=== PATIENT | male | born 1965 | race Caucasian/White ===

== ENCOUNTER 2020-10-30 11:12 | Outpatient (REF) | payer OTHER, SELFPAY | END 2020-10-30 11:13 | disposition home or self-care (01) | LOC: HO.LNP 11:12 | PROVIDERS: Visit Provider Hospitalist | DX: Z20.822 Contact with and (suspected) exposure to COVID-19 (principal); B34.9 Viral infection, unspecified | CPT/HCPCS: U0003; U0005 ==

== ENCOUNTER → 2020-11-23 09:00 | Outpatient (BNVA) | payer OTHER, SELFPAY | PROVIDERS: PCP Internal Medicine; Visit Provider Nurse Practitioner | DX: Z13.89 Encounter for screening for other disorder (principal) | CPT/HCPCS: Q3014 ==

== ENCOUNTER 2020-12-28 11:13 | Day surgery (SDC) | payer OTHER, SELFPAY ==
[2020-12-22 14:00] VITALS: BMI 28.4
--- NOTE | 2020-12-27 11:02 | P.CONAN_ITS ---
Documented by User: Johana Tripathi 12/27/20 11:03 HPI - Anesthesia Eval Consult details Narrative: 55yo M for Upper Endoscopy and Colonoscopy [facility] Active Problems Active Problems: All Active Problems (Updated 12/22/20 @ 13:57 by Breanna Garvin) Viral syndrome (Acute) Diarrhea (Acute) Constipation (Acute) Abdominal bloating (Acute) Colon cancer screening (Acute) Odynophagia (Acute) Polyarthralgia (Acute) Allergic rhinitis (Acute) Mild asthma (Acute) GERD (gastroesophageal reflux disease) (Acute) Past Medical History Medical History Allergic rhinitis GERD (gastroesophageal reflux disease) Mild asthma Peptic ulcer Polyarthralgia Family History Family History Mother Cirrhosis of liver Diabetes Lung cancer Heart disease HTN (hypertension) Father Emphysema lung Sister Parkinson disease Paternal Grandmother Dementia HTN (hypertension) Paternal Aunt Bone cancer Surgical History Surgical History History of dental surgery Hx of hand surgery Social History Social History Alcohol intake: current Alcohol intake frequency: holidays/special occasions only Alcohol type: wine Smoking Status: Never smoker Use of substances other than those prescribed or required for medical reasons: No Have you been hit, kicked, punched, or otherwise hurt by someone within the past year? If so, by whom?: No Advance Directives Information Provided: No Meds Allergies Allergy/AdvReac Type Severity Reaction Status Date / Time coconut Allergy Intermediate skin rash Verified 12/22/20 13:59 Seasonal Allergies Allergy Intermediate Itchy Eyes Verified 12/22/20 13:59 gabapentin Allergy Shakiness Verified 12/27/20 09:09 Home Medications Medication Instructions Recorded Confirmed Last Taken Type albuterol sulfate 90 mcg/actuation 2 puff PO QID PRN 08/22/20 12/22/20 Unknown History aerosol inhaler fluticasone propionate 110 110 mcg INHALATION BID 08/22/20 12/22/20 Unknown History mcg/actuation HFA aerosol inhaler ibuprofen 800 mg tablet 800 mg PO TID PRN 11/23/20 12/22/20 Unknown History multivitamin 1 tab PO DAILY 11/23/20 12/22/20 Unknown History Exam Exam Date and Time: December 27, 2020 1102 Height,Weight and Vital Signs: Height 5 ft 8 in Weight 84.822 kg Assessment and Plan Assessment Anesthesia Assessment: Chart Reviewed Documented by User: Elizabeth Ko 12/28/20 11:54 [facility] Past Medical History Medical History Allergic rhinitis GERD (gastroesophageal reflux disease) Mild asthma Peptic ulcer Polyarthralgia Family History Family History Mother Cirrhosis of liver Diabetes Lung cancer Heart disease HTN (hypertension) Father Emphysema lung Sister Parkinson disease Paternal Grandmother Dementia HTN (hypertension) Paternal Aunt Bone cancer Surgical History Surgical History History of dental surgery Hx of hand surgery Social History Social History Alcohol intake: current Alcohol intake frequency: holidays/special occasions only Alcohol type: wine Smoking Status: Never smoker Use of substances other than those prescribed or required for medical reasons: No Have you been hit, kicked, punched, or otherwise hurt by someone within the past year? If so, by whom?: No Advance Directives Information Provided: No Meds Allergies Allergy/AdvReac Type Severity Reaction Status Date / Time coconut Allergy Intermediate skin rash Verified 12/22/20 13:59 Seasonal Allergies Allergy Intermediate Itchy Eyes Verified 12/22/20 13:59 gabapentin Allergy Shakiness Verified 12/27/20 09:09 Home Medications Medication Instructions Recorded Confirmed Last Taken Type albuterol sulfate 90 mcg/actuation 2 puff PO QID PRN 08/22/20 12/22/20 Unknown History aerosol inhaler fluticasone propionate 110 110 mcg INHALATION BID 08/22/20 12/22/20 Unknown History mcg/actuation HFA aerosol inhaler ibuprofen 800 mg tablet 800 mg PO TID PRN 11/23/20 12/22/20 Unknown History multivitamin 1 tab PO DAILY 11/23/20 12/22/20 Unknown History Exam Airway Mallampati Class: III TM Dist: >3cm Neck ROM: Full Loose/Missing/Broken Teeth: Yes Heart: RRR Lungs: CTA Assessment and Plan Assessment Anesthesia Assessment: Anesthesia Plan Discussed and Chart Reviewed Final Anesthetic Review NPO: Yes ASA Class: II Final Preanesthetic Review: Meds/Allgs Chart Reviewed, Consent Obtained/Reviewed and Anes Risks/Benef Reviewed Patient Risk: Low Procedure Risk: Intermediate Anesthetic Plan Anesthetic Plan: MAC: Disposition: Standard PACU
[2020-12-28 11:24] VITALS: BP 129/79; PULSE 85; RESP 18; TEMP 36.3; O2SAT 97
[2020-12-28] MEDS: Lactated Ringers 1,000 ML 100 ML IVCONT (11:38)
--- NOTE | 2020-12-28 11:40 | P.OP_ITS ---
Operative Note Operative Note Date of Service: 12/28/20 Narrative: Pre-op diagnosis: Colon cancer screening, chronic constipation alternating with diarrhea, GERD, history of peptic ulcer disease Post-op diagnosis: other (GERD, gastritis, gastric polyp, diverticulosis, hemorrhoids, colon polyp) Procedure: FLEXIBLE TRANSORAL UPPER GASTROINTESTINAL ENDOSCOPY WITH BIOPSIES AND COLONOSCOPY TILL CECUM WITH BIOPSIES AND SNARE POLYPECTOMY UPPER ENDOSCOPY Consent: Indications for the procedure and potential complications of bleeding, perforation, reaction to medications and missed diagnosis were discussed with the patient and informed consent was obtained. Instrument: Olympus GIF H 190 mid size upper endoscope Monitoring: Vital signs and clinical assessment, continuous EKG monitoring, Pulse oximetry, Carbon Dioxide monitoring and blood pressure monitoring were done throughout the procedure. Procedure: The patient was placed in the left lateral decubitis position and pre-procedure medications were administered and a bite block was placed. The endoscope was inserted into the mouth and advanced under direct vision to the third part of duodenum. A careful inspection was made as the upper endoscope was withdrawn including a retroflexed examination of the proximal stomach; Findings and interventions are described below. Findings: Larynx: Normal Esophagus: GE junction at 40 cms. 1 cms tongue of suspected Ashford's.- biopsied. Stomach: Mild gastric erythema. Biopsies were obtained from the antrum and body of the stomach. A 2-3 mm benign appearing polyp in the gastric body - removed with a cold biopsy. Grade 2 flap valve on retroflexed examination of the cardia. Duodenum: Normal bulb and descending duodenum. Biopsies were obtained from 3rd part of the duodenum to check for celiac sprue. Intervention: Biopsies as noted above COLONOSCOPY PROCEDURE NOTE Consent: Indications for the procedure and potential complications of bleeding, perforation, reaction to medications and missed diagnosis were discussed with the patient and informed consent was obtained. Instrument: Olympus PCF H 190 L variable stiffness pediatric colonoscope Monitoring: Vital signs and clinical assessment, intermittent blood pressure monitoring, continuous EKG monitoring, Pulse oximetry and Carbon Dioxide monitoring were done throughout the procedure. Colon withdrawl time was 21 minutes. Procedure: The patient was placed in the left lateral decubitis position and pre-procedure medications were administered. After a digital rectal examination of the ano-rectum, the video colonoscope was inserted into the rectum and advanced through the colon to the cecum. The colonoscope was slowly withdrawn in a retrograde panoramic fashion and the colon mucosa was carefully examined including a retroflexed view of the rectum. Findings and interventions are described below. Procedure Difficulty: : LLQ pressure applied to intubate the transverse colon/cecum Findings: Terminal Ileum: Not evaluated Cecum: Normal Ascending Colon: 5 mm polyp versus fold in the proximal ascending colon which was biopsied. Transverse Colon: Normal Descending Colon: Moderate diverticulosis Sigmoid Colon: 7-8 mm sessile polyp removed with a cold snare. Severe dive rticulosis Rectum: Normal Ano-rectum: Moderate internal hemorrhoids Colon preparation: Good after some irrigation Impression and Post Procedure Diagnosis: Endoscopy Findings: ESOPHAGUS: GE junction at 40 cms. 1 cms tongue of suspected Ashford's.- biopsied. STOMACH: Gastritis and small gastric polyp DUODENUM: Normal - biopsied to check for celiac sprue Colonoscopy Findings: Two small polyps removed Moderate diverticulosis seen in the left colon Moderate hemorrhoids on retroflexed exam. Plan: Await pathology results Patient to schedule a follow up appointment in the GI Clinic with Khloe Ulloa NP. Repeat Colonoscopy interval based on path results - in 5 years if polyps are adenomatous and 10 years if polyps are hyperplastic. Above findings were reviewed with the patient and GERD, colon polyps and diverticulosis handouts were given in the discharge area Surgeon: Jackeline Devine MD Anesthesia: MAC (Shamika Goldstein, FROZEN MEAT CUTTER) Book Sorter: Yaz Warren Estimated blood loss (mL): 0 Pathology: other (A: SMALL BOWEL BX'S, R/O CELIAC B: GASTRIC ANTRUM C: GASTRIC BODY D: GASTRIC POLYP E: GE JUNCTION, R/O ASHFORD'S F: ASCENDING COLON POLYP G: SIGMOID P) Condition: stable Disposition: PACU
--- NOTE | 2020-12-28 11:40 | MHC.SHP ---
Pre-Procedural Eval Section A The patient is an INPATIENT: No The History & Physical has been completed within 30 days and I have reviewed it.: No Section B Chief Complaint: Screeing, GERD Details of Present Illness: Colon cancer screening, constipation alternating with diarrhea, abdominal pain and bloating, hx of PUD Relevant Family History (Specify if Yes): Yes Present Medications: see Short Stay Collaborative assessment Medical History: Significant History (Allergic rhinitis GERD (gastroesophageal reflux disease) Mild asthma Polyarthralgia) History of Previous Operations: Relevant previous surgery/procedure and date(s) (History of dental surgery Hx of hand surgery) Allergies: Allergies Allergy/AdvReac Type Severity Reaction Status Date / Time coconut Allergy Intermediate skin rash Verified 12/22/20 13:59 Seasonal Allergies Allergy Intermediate Itchy Eyes Verified 12/22/20 13:59 gabapentin Allergy Shakiness Verified 12/27/20 09:09 Review of Systems Sugical H&P ROS: Negative: Constitution, Cardiovascular and Respiratory and Yes, Specify: Gastrointestinal (Constipation alternating with diarrhea, abdominal pain) Exam Surgical H&P Exam: Normal: Heart, Normal: Lungs, Normal: Extremities and Normal: Abdomen Plan Diagnosis/Plan: Change (EGD and colonoscopy for colon cancer screening and evaluation above symptoms) I have reviewed the history and physical and performed a pertinent physical examination on my patient. No changes have occurred unless specified.
[2020-12-28 12:45] VITALS: BP 107/73; PULSE 83; RESP 20; TEMP 36.1; O2SAT 98
[2020-12-28 13:00] VITALS: BP 106/73; PULSE 78; RESP 18; O2SAT 98
== END 2020-12-28 14:46 | disposition home or self-care (01) ==
PROVIDERS: PCP Internal Medicine; Visit Provider Internal Medicine Gastroenterology
PROC: (CPT 45385; principal; 2020-12-28 11:30)
DX: Z12.11 Encounter for screening for malignant neoplasm of colon (principal); D12.5 Benign neoplasm of sigmoid colon; K63.5 Polyp of colon; K57.30 Diverticulosis of large intestine without perforation or abscess without bleeding; K64.8 Other hemorrhoids; K59.09 Other constipation; K21.9 Gastro-esophageal reflux disease without esophagitis; K29.50 Unspecified chronic gastritis without bleeding; K31.7 Polyp of stomach and duodenum; Z87.11 Personal history of peptic ulcer disease; J45.909 Unspecified asthma, uncomplicated; Z79.51 Long term (current) use of inhaled steroids; Z79.899 Other long term (current) drug therapy; Z88.8 Allergy status to other drugs, medicaments and biological substances
CPT/HCPCS: 45385; 45380; 43239; 88305; 88342

== ENCOUNTER → 2021-07-02 15:55 | Outpatient (BNVA) | payer OTHER, SELFPAY | PROVIDERS: PCP Internal Medicine; Visit Provider Nurse Practitioner | DX: K59.04 Chronic idiopathic constipation (principal); K21.9 Gastro-esophageal reflux disease without esophagitis; D12.6 Benign neoplasm of colon, unspecified | CPT/HCPCS: Q3014 ==

== ENCOUNTER → 2021-07-31 08:47 | Outpatient (BNVA) | payer OTHER, SELFPAY | PROVIDERS: PCP Nurse Practitioner Family; Visit Provider Nurse Practitioner | DX: Z13.89 Encounter for screening for other disorder (principal) | CPT/HCPCS: Q3014 ==

== ENCOUNTER → 2022-03-07 12:40 | Outpatient (BNVA) | payer OTHER, SELFPAY | PROVIDERS: PCP Internal Medicine; Referring Provider Internal Medicine; Visit Provider Nurse Practitioner | DX: K59.04 Chronic idiopathic constipation (principal); K21.9 Gastro-esophageal reflux disease without esophagitis | CPT/HCPCS: 99212 ==

== ENCOUNTER → 2022-09-24 08:41 | Outpatient (BNVA) | payer OTHER, SELFPAY | PROVIDERS: PCP Internal Medicine; Visit Provider Nurse Practitioner | DX: K21.9 Gastro-esophageal reflux disease without esophagitis (principal); K59.04 Chronic idiopathic constipation; R14.0 Abdominal distension (gaseous); Z91.018 Allergy to other foods; Z79.899 Other long term (current) drug therapy | CPT/HCPCS: 99212 ==

== ENCOUNTER 2022-11-12 14:30 | Outpatient (RCR) | payer OTHER, SELFPAY ==
--- NOTE | 2022-10-04 12:16 | MHC.OT.EP ---
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 Pt will benefit from OT to regain hand strength and dexterity for inc ease with daily activities. 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 Thank you once again for your referral.
--- NOTE | 2022-11-12 15:27 | MHC.OT.DC ---
[address] [phone] F: [phone] Occupational Therapy Discharge Note Provider: Lorenza Hartley Diagnosis: Pain in left hand Date of Surgery: Date of Evaluation: 10/04/22 Date of Discharge: 11/12/22 Treatments to Date: 3 Cancellations to Date: No Shows to Date: Discharge Status: Achieved Goals Improved Function Independent with HEP Discharge Summary: Left hand pain resolved Left trigger finger resolved Towel Sorter strength WNL Left hand function improved to WNL. Pt reports no difficulty with homemaking including using his beamer hand a few hours today Absences due to family illness He reports he is nervous with using a knife in his left dominant hand however reported confident after practicing in OT today Goals met Electronically Signed By: Justina Puckett OT CHT CLT Reviewed/agree with student documentation: N/A Therapist: Please Sign and return to therapist, thank you for your referral.
== END 2022-11-12 15:27 | disposition home or self-care (01) ==
LOC: HO.OT 14:30
PROVIDERS: PCP Internal Medicine; Visit Provider Internal Medicine
DX: M79.642 Pain in left hand (principal)
CPT/HCPCS: 97035; 97110; 97166; 97530

== ENCOUNTER 2023-06-18 08:38 | Outpatient (AMB) | payer OTHER, SELFPAY ==
[2023-06-18 08:40] VITALS: BP 132/77; PULSE 69; BMI 26.5
--- NOTE | 2023-06-18 08:40 | A.OFFVIS_ITS ---
Intake Vital Signs 06/18/23 08:40 Height 5 ft 8 in Weight 174 lb 2.643 oz BMI 26.5 BP 132/77 Blood Pressure Location Rt brachial Position Sitting Pulse 69 Intake Visit Reasons: Abdominal pain PT N/S last 3 appt Intake Note: Patient presents today in office visits in follow up of abdominal pain. CC: Patient c/o diarrhea for the last 4-5 days, nausea, and abdominal pain. He reports he is worried about his brother in law because he is in the hospital and stress might be affecting his stomach. Access Liaison Required: No Accompanied by: Self / Same As Patient Allergies coconut Allergy (Intermediate, Verified 06/18/23 08:54) skin rash Seasonal Allergies Allergy (Intermediate, Verified 06/18/23 08:54) Itchy Eyes gabapentin Allergy (Verified 06/18/23 08:54) Shakiness cut glass Allergy (Mild, Uncoded 09/05/22 08:50) Unknown ahuja Allergy (Mild, Uncoded 09/05/22 08:50) unknown HPI Abdominal pain PT N/S last 3 appt HPI Details Assessment & Plan (1) Chronic idiopathic constipation: ?Code(s): K59.04 - Chronic idiopathic constipation ?Plan: He received the Linzess and at the 145mcg dose he is moving his bowels well, and he does not feel that he needs a dose adjustment. He will still have bloating with some foods, sampson dairy, and he feels that some foods give me red splotches on my hands. He has had prior testing and he knows he is allergic to coconut and nuts, peanut [id number] and shrimp. He is doing well on his protonix and he has senna to take prn. ROV 3 month. 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 Qualified Code(s):?K21.9 - Gastro-esophageal reflux disease without esophagitis (4) Abdominal bloating: ?Comment: This was largely relieved once we regulate his constipation on Linzess 145 micro g ?Code(s): R14.0 - Abdominal distension (gaseous) TODAYS VISIT He says his stomach is bothering me a lot. He is having severe bloating after eating. This has been a problem for about 3 weeks. He also been having a lot of diarrhea. He says I feel like there is a blockage. He has tried imodium and suppositories. It is worse with eating rice. He has continued to take the LInzess 290 daily and the senna. I think since he has had 7 days of diarrhea we should go back to the lower 145mcg dose and stop the senna. It sounds like he is having gas trapping. He says he is taking simethicone tid. He is also c/o pain with urination. He had some fevers/chills about a week ago, tested for COVID and it was negative. ROV 3 weeks. 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 He says he has been under a lot of stress. [facility] Medical History Hearing loss Peptic ulcer Diarrhea Polyarthralgia Allergic rhinitis Mild asthma GERD (gastroesophageal reflux disease) Surgical History History of esophagogastroduodenoscopy (EGD) Hx of colonoscopy History of dental surgery Hx of hand surgery Family History Mother Cirrhosis of liver Diabetes Lung cancer Heart disease HTN (hypertension) Father Emphysema lung Sister Parkinson disease Substance use disorder Paternal Grandmother Dementia HTN (hypertension) Paternal Aunt Bone cancer Social History Housing: House Alcohol intake: current Alcohol intake frequency: holidays/special occasions only Alcohol type: wine Patient Tobacco Use Status: Never used Tobacco e-Cigarette/Vaping Use: Never Used Second Hand Smoke Exposure: No service: No Current occupational status: disabled Cognitive needs: No Hearing needs: No Vision needs: Yes Review of Systems Const Denies fatigue, Reports fever(s), Denies night sweats, Denies poor appetite and Denies weight loss Eyes Details: glasses Reports requires corrective lenses ENT Reports Normal hearing present, Denies dental pain, Denies dysphagia, Denies hearing loss, Denies mouth pain, Denies odynophagia, Denies throat swelling, Denies tongue swelling and Reports other (Dentition adequate) Card Reports no additional complaints Resp Reports no additional complaints GI Reports abdominal pain, Denies melena, Reports bloating, Denies hematochezia, Reports constipation, Denies GI cramping, Denies dysphagia, Denies excessive flatus, Denies early satiety, Reports heartburn, Reports diarrhea, Reports nausea, Denies odynophagia, Denies vomiting and Denies hematemesis Reports hematuria, Reports difficulty urinating and Reports dysuria Skin/Breast Denies pruritus, Denies lesions, Denies rash and Denies jaundice Neuro Reports Normal hearing present and Denies Abnormal speech present Psych Reports anxiety Endo Denies fatigue Aller/Immun Denies throat swelling and Denies tongue swelling Physical Exam Vital Signs: Last Vital Signs Pulse 69 06/18/23 08:40 BP 132/77 06/18/23 08:40 BMI result Body Mass Index 26.5 Const General: cooperative, no acute distress, well developed and well groomed Nutritional Appearance: average body habitus and well nourished Orientation/consciousness: oriented to person, oriented to place and oriented to time Limitations: No language barrier and other limitations HEENT Head: Yes normocephalic and Yes atraumatic Eyes General: appearance normal, both eyes and all related structures Pupils: Equal, round and reactive pupils present Neck Neck: Yes normal visual inspection and Yes no lymphadenopathy Thyroid: Thyroid normal Resp Effort & Inspection: normal respiratory effort and able to speak in complete sentences Auscultation: clear to auscultation bilaterally Cardio Rate: regular rate Rhythm: regular rhythm Heart sounds: Normal, physiologic split S2 sound present Peripheral pulses: radial pulses present and posterior tibial pulses present GI Inspection: No distended and No Abdominal panniculus present Palpation (GI): Soft to palpation, nontender, no guarding, not rigid and No hepatosplenomegaly present Percussion: Yes normal to percussion Auscultation: normal bowel sounds Rectal Exam - Male: Yes deferred Skin General skin exam: no rashes or lesions noted, turgor normal, skin not dry, no jaundice, No spider nevi and no striae Rashes: no rashes Nails: normal Neuro General: oriented to person, oriented to place and oriented to time Cranial nerves: Yes Equal, round and reactive pupils present and Yes Normal hearing present Speech: No Abnormal speech present Extrem General: Yes normal to inspection, No clubbing, No cyanosis and No edema Psych Appearance: grossly normal and well kempt Mental Status: mental status grossly normal Speech and movement: Normal speech and movement present Affect: normal affect Attitude: cooperative Thought process: Normal thought process present and not confabulating Thought content: Normal thought content present Insight: Limited insight present (Psych) Judgement: Limited judgement present (Psych) Assessment & Plan Assessment & Plan (1) Acute diarrhea: Code(s): R19.7 - Diarrhea, unspecified Plan: He says his stomach is bothering me a lot. He is having severe bloating after eating. This has been a problem for about 3 weeks. He also been having a lot of diarrhea. He says I feel like there is a blockage. He has tried imodium and june ppositories. It is worse with eating rice. He has continued to take the LInzess 290 daily and the senna. I think since he has had 7 days of diarrhea we should go back to the lower 145mcg dose and stop the senna. It sounds like he is having gas trapping. He says he is taking simethicone tid. He is also c/o pain with urination. He had some fevers/chills about a week ago, tested for COVID and it was negative. ROV 3 weeks. 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 He says he has been under a lot of stress. (2) Chronic idiopathic constipation: Code(s): K59.04 - Chronic idiopathic constipation (3) Abdominal bloating: Comment: This was largely relieved once we regulate his constipation on Linzess 145 micro g Code(s): R14.0 - Abdominal distension (gaseous) (4) GERD (gastroesophageal reflux disease): Code(s): K21.9 - Gastro-esophageal reflux disease without esophagitis Qualifiers: Esophagitis presence: esophagitis presence not specified Qualified Code(s): K21.9 - Gastro-esophageal reflux disease without esophagitis (5) Multiple food allergies: Comment: Nuts, peanut butter, shrimp, coconut-had food allergy testing at a different practice and he will break out in red splotches when he eats these and 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 Code(s): Z91.018 - Allergy to other foods Orders: Orders Calprotectin, Fecal Today R19.7 - Diarrhea, unspecified UA CC w/rflx Micro + Cult Today R19.7 - Diarrhea, unspecified GI Panel Today R19.7 - Diarrhea, unspecified CDiff Gene PCR Today R19.7 - Diarrhea, unspecified Medications: On Hold sennosides (Senna Laxative) Hold Comment: Doctor's Order 17.2 mg (2 x 8.6 mg) PO BEDTIME 90 days PRN 90 tabs 1RF constipation linaclotide (Linzess) Hold Comment: Doctor's Order 290 mcg PO QAM 30 days 30 caps 3RF Resumed linaclotide (Linzess) 145 mcg PO QAM 30 caps 6RF K59.04 - Chronic idiopathic constipation linaclotide (Linzess) 145 mcg PO QAM 30 caps 6RF K59.04 - Chronic idiopathic constipation Coding Level of Care Code Est Pt Level 3 (45637) Diagnoses Acute diarrhea R19.7 Chronic idiopathic constipation K59.04 Abdominal bloating R14.0 Gastroesophageal reflux disease, unspecified whether esophagitis present K21.9 Esophagitis presence: esophagitis presence not specified Multiple food allergies Z91.018
== END 2023-06-18 09:26 | disposition home or self-care (01) ==
PROVIDERS: PCP Internal Medicine; Visit Provider Nurse Practitioner
DX: R19.7 Diarrhea, unspecified (principal); K59.04 Chronic idiopathic constipation; R14.0 Abdominal distension (gaseous); K21.9 Gastro-esophageal reflux disease without esophagitis; Z91.018 Allergy to other foods
CPT/HCPCS: 99213

== ENCOUNTER 2023-06-18 08:38 | Outpatient (REF) | payer OTHER, SELFPAY | END 2023-06-18 08:39 | disposition home or self-care (01) | LOC: HO.LAB 08:38 | PROVIDERS: PCP Internal Medicine; Visit Provider Nurse Practitioner | DX: R19.7 Diarrhea, unspecified (principal); K59.04 Chronic idiopathic constipation; R14.0 Abdominal distension (gaseous); K21.9 Gastro-esophageal reflux disease without esophagitis; Z91.018 Allergy to other foods | CPT/HCPCS: 74019; 99212 ==

== ENCOUNTER 2023-06-19 10:31 | Outpatient (REF) | payer OTHER, SELFPAY ==
[2023-06-19 11:16] LABS: Appearance Urine Clear; Color Urine Yellow; Glucose Urine UA Negative (Negative); Leukocyte Esterase Urine Negative (Negative); Nitrite Urine Negative (Negative); PH 5.5 (5.0-9.0); Specific Gravity - Urine 1.015 (1.005-1.025); Urine Blood Negative (Negative); Urine Ketones Negative (Negative); Urine Protein Negative (Neg-Trace)
[2023-06-19 12:28] LABS: Adenovirus F 40/41 Not Detected (Not Detect.); Astrovirus Not Detected (Not Detect.); Campylobacter Not Detected (Not Detect.); Cryptosporidium Not Detected (Not Detect.); Cyclospora cayetanensis Not Detected (Not Detect.); E. coli EAEC Not Detected (Not Detect.); E. coli EPEC Not Detected (Not Detect.); E. coli ETEC Not Detected (Not Detect.); E. coli STEC Not Detected (Not Detect.); Entamoeba histolytica Not Detected (Not Detect.); Giardia lamblia Not Detected (Not Detect.); Norovirus GI/GII Not Detected (Not Detect.); Plesiomonas shigelloides Not Detected (Not Detect.); Rotavirus A Not Detected (Not Detect.); Salmonella Not Detected (Not Detect.); Sapovirus Not Detected (Not Detect.); Shigella sp./EIEC Not Detected (Not Detect.); Vibrio Not Detected (Not Detect.); Vibrio Cholerae Not Detected (Not Detect.); Yersinia enterocolitica Not Detected (Not Detect.)
[2023-06-27 02:04] LABS: Calprotectin, Fecal 48 mcg/g
== END 2023-06-19 10:32 | disposition home or self-care (01) ==
LOC: HO.LNP 10:31
PROVIDERS: Visit Provider Nurse Practitioner
DX: R19.7 Diarrhea, unspecified (principal)
CPT/HCPCS: 81003; 83993; 87493; 87507

== ENCOUNTER 2023-07-09 11:50 | Outpatient (AMB) | payer OTHER, SELFPAY ==
[2023-07-09 12:03] VITALS: BP 123/77; PULSE 66; O2SAT 98; BMI 26.3
--- NOTE | 2023-07-09 12:03 | MHC.OFFVIS ---
Intake Vital Signs 07/09/23 12:03 Height 5 ft 8 in Weight 173 lb 4.533 oz BMI 26.3 BP 123/77 Blood Pressure Location Lt brachial Position Sitting Pulse 66 Pulse Source Pulse Oximeter Pulse Oximetry (%) 98 Oxygen Delivery Method Room Air Intake Visit Reasons: 3 week follow up Intake Note: Pt presents to the office today for a 3 week follow up for abdominal bloating. Pt states his bloating has improved greatly since he was seen last. Pt denies any N/V/D. Allergies coconut Allergy (Intermediate, Verified 07/09/23 12:06) skin rash Seasonal Allergies Allergy (Intermediate, Verified 07/09/23 12:06) Itchy Eyes gabapentin Allergy (Verified 07/09/23 12:06) Shakiness cut glass Allergy (Mild, Uncoded 07/09/23 12:06) Unknown ahuja Allergy (Mild, Uncoded 07/09/23 12:06) unknown HPI 3 week follow up HPI Details Assessment & Plan (1) Acute diarrhea: Code(s): R19.7 - Diarrhea, unspecified Plan: He says his stomach is bothering me a lot. He is having severe bloating after eating. This has been a problem for about 3 weeks. He also been having a lot of diarrhea. He says I feel like there is a blockage. He has tried imodium and suppositories. It is worse with eating rice. He has continued to take the LInzess 290 daily and the senna. I think since he has had 7 days of diarrhea we should go back to the lower 145mcg dose and stop the senna. It sounds like he is having gas trapping. He says he is taking simethicone tid. He is also c/o pain with urination. He had some fevers/chills about a week ago, tested for COVID and it was negative. ROV 3 weeks. 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 He says he has been under a lot of stress. (2) Chronic idiopathic constipation: Code(s): K59.04 - Chronic idiopathic constipation (3) Abdominal bloating: Comment: This was largely relieved once we regulate his constipation on Linzess 145 micro g Code(s): R14.0 - Abdominal distension (gaseous) (4) GERD (gastroesophageal reflux disease): Code(s): K21.9 - Gastro-esophageal reflux disease without esophagitis Qualifiers: Esophagitis presence: esophagitis presence not specified Qualified Code(s): K21.9 - Gastro-esophageal reflux disease without esophagitis (5) Multiple food allergies: Comment: Nuts, peanut butter, shrimp, coconut-had food allergy testing at a different practice and he will break out in red splotches when he eats these and 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 Code(s): Z91.018 - Allergy to other foods Orders: Orders Calprotectin, Feca l Today R19.7 - Diarrhea, unspecified UA CC w/rflx Micro + Cult Today R19.7 - Diarrhea, unspecified GI Panel Today R19.7 - Diarrhea, unspecified CDiff Gene PCR Today R19.7 - Diarrhea, unspecified Medications: On Hold sennosides (Senna Laxative) Hold Comment: Doctor's Order 17.2 mg (2 x 8.6 m g) PO BEDTIME 90 d ays PRN 90 tabs 1R F constipation linaclotide (Linze ss) Hold Commen t: Doctor's Order 290 mcg PO QAM 30 days 30 caps 3RF Resumed linaclotide (Linze ss) 145 mcg PO QAM 30 caps 6RF K59.04 - Chronic i diopathic constipa tion linaclotide (Linze ss) 145 mcg PO QAM 30 caps 6RF K59.04 - Chronic i diopathic constipa tion LABS: Laboratory Tests 06/19/23 06:30 Stool Calprotectin 48 C. difficile Tox B Gene NEGATIVE ENTERED: 3-[address]: ORDERED: GI Oleary el Test Result Flag Refere nce Si te Campylobacter No t Detected Not Det ect. P. shigelloides Not Detected Not Detec t. S almonella Not De tected Not Detect. Vib wilian Not Dete cted Not Detect. Vibri o Cholerae Not Detect ed Not Detect. Y. ente rocolit. Not Detected Not Detect. E. coli E AEC Not Detected N ot Detect. E. coli EPE C Not Detected Not Detect. E. coli ETEC Not Detected Not D etect. E. coli STEC No t Detected Not Det ect. E. coli O157 Not a pplicable Not Detec t. E. coli contai gia the O157 anti gen are a subset o f Shiga-lik e toxin-producing E. coli (STEC). Shigella/EIEC Not D etected Not Detect . Cr yptosporidium Not Det ected Not Detect. Cycl ospora Not Detec sincere Not Detect. E. his [place] Not Detecte d Not Detect. Giardia lamblia Not Detected Not Detect. Adenovirus Not Detected No t Detect. Astrovirus Not Detected Not Detect. Norovirus N ot Detected Not De tect. Rotavirus A Not Detected Not Dete ct. Sapovirus Not D etected Not Detect . QUERIES: Collect ion Date: 06/19/23 Colle ction Time: 0630 Breanne rce: Urine, Clean Catch Test Result Flag Refere nce Si te Ur Color Yellow Ur Appear C lear P H 5. 5 5.0-9.0 Ur Glu Negati ve Negative mg/d L Urine Blood Negative Negative Spec Gr avity Ur 1.015 1.005-1.025 Urine Pro tein Negative N eg-Trace mg/dL Urine [place] es Negative Neg ative mg/dL Ur Nitrite Negative Negat danny Ur Joe Esterase Negative Negativ e TODAYS VISIT His diarrhea has ceased. He he is uncertain rely but it might be that he is dealing better with his stress. For now we have stopped his Linzess since constipation does not seem to be a driving process at this time. Again he has multiple food allergies so it is uncertain is something he ate may have triggered this last exacerbation. We review all the labs and does not appear to be acute infection there does not seem to be any concern for anything severe such as inflammatory bowel disease. His only complaint is that he is having swelling and itching at the meatus of his penis. He denies any risky sexual contacts. I did advise him that this may be balanitis and I will give him an anti fungal but if it does not resolve he should present to an urgent care for STD testing. I say this because these things are much easier to treat then to the leave untreated with serious life-threatening sequela. Return office visit in 8 weeks to evaluate his response to presume balanitis and see how he is doing with his bowels. [facility] Medical History Hearing loss Peptic ulcer Diarrhea Polyarthralgia Allergic rhinitis Mild asthma GERD (gastroesophageal reflux disease) Surgical History History of esophagogastroduodenoscopy (EGD) Hx of colonoscopy History of dental surgery Hx of hand surgery Family History Mother Cirrhosis of liver Diabetes Lung cancer Heart disease HTN (hypertension) Father Emphysema lung Sister Parkinson disease Substance use disorder Paternal Grandmother Dementia HTN (hypertension) Paternal Aunt Bone cancer Social History Housing: House Alcohol intake: current Alcohol intake frequency: holidays/special occasions only Alcohol type: wine Patient Tobacco Use Status: Never used Tobacco e-Cigarette/Vaping Use: Never Used Second Hand Smoke Exposure: No service: No Current occupational status: disabled Cognitive needs: No Hearing needs: No Vision needs: Yes Review of Systems Const Denies fatigue, Denies fever(s), Denies night sweats, Denies poor appetite and Denies weight loss Eyes Reports requires corrective lenses ENT Reports Normal hearing present, Denies dental pain, Denies dysphagia, Denies hearing loss, Denies mouth pain, Denies odynophagia, Denies throat swelling, Denies tongue swelling and Reports other (Dentition adequate) GI Denies abdominal pain, Denies melena, Denies bloating, Denies hematochezia, Denies constipation, Denies GI cramping, Denies dysphagia, Denies excessive flatus, Denies early satiety, Denies heartburn, Denies diarrhea, Denies nausea, Denies odynophagia, Denies vomiting and Denies hematemesis Skin/Breast Denies pruritus, Denies lesions, Denies rash and Denies jaundice Neuro Reports Normal hearing present and Denies Abnormal speech present Endo Denies fatigue Aller/Immun Denies throat swelling and Denies tongue swelling Physical Exam Vital Signs: Last Vital Signs Pulse 66 07/09/23 12:03 BP 123/77 07/09/23 12:03 Pulse Ox 98 07/09/23 12:03 Oxygen Delivery Method Room Air 07/09/23 12:03 BMI result Body Mass Index 26.3 Const General: cooperative, no acute distress, well developed and well groomed Nutritional Appearance: well nourished, obese and overweight Orientation/consciousness: oriented to person, oriented to place and oriented to time Limitations: No language barrier, ambulation with cane, ambulation with walker and wheelchair HEENT Head: Yes normocephalic and Yes atraumatic Eyes General: appearance normal, both eyes and all related structures Pupils: Equal, round and reactive pupils present Neck Neck: Yes normal visual inspection and Yes no lymphadenopathy Thyroid: Thyroid normal Resp Effort & Inspection: normal respiratory effort and able to speak in complete sentences Auscultation: clear to auscultation bilaterally Cardio Rate: regular rate Rhythm: regular rhythm Heart sounds: Normal, physiologic split S2 sound present Peripheral pulses: radial pulses present and posterior tibial pulses present GI Inspection: No distended and No Abdominal panniculus present Palpation (GI): Soft to palpation, nontender, no guarding, not rigid, No hepatosplenomegaly present and Hepatosplenomegaly present Percussion: Yes normal to percussion Auscultation: normal bowel sounds Rectal Exam - Male: Yes deferred Skin General skin exam: no rashes or lesions noted, turgor normal, skin not dry, no jaundice, No spider nevi and no striae Rashes: no rashes Nails: normal Neuro General: oriented to person, oriented to place and oriented to time Cranial nerves: Yes Equal, round and reactive pupils present and Yes Normal hearing present Speech: No Abnormal speech present Extrem General: Yes normal to inspection, No clubbing, No cyanosis and No edema Psych Thought process: Normal thought process present and not confabulating Thought content: Normal thought content present Insight: Good insight present (Psych) Judgement: Good judgement present (Psych) Assessment & Plan Assessment & Plan (1) Acute diarrhea: Code(s): R19.7 - Diarrhea, unspecified Plan: His diarrhea has ceased. He he is uncertain rely but it might be that he is dealing better with his stress. For now we have stopped his Linzess since constipation does not seem to be a driving process at this time. Again he has multiple food allergies so it is uncertain is something he ate may have triggered this last exacerbation. We review all the labs and does not appear to be acute infection there does not seem to be any concern for anything severe such as inflammatory bowel disease. His only complaint is that he is having swelling and itching at the meatus of his penis. He denies any risky sexual contacts. I did advise him that this may be balanitis and I will give him an anti fungal but if it does not resolve he should present to an urgent care for STD testing. I say this because these things are much easier to treat then to the leave untreated with serious life-threatening sequela. Return office visit in 8 weeks to evaluate his response to presume balanitis and see how he is doing with his bowels. 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 He he is uncertain rely but it might be that he is dealing better with his stress. For now we have stopped his Linzess since constipation does not seem to be a driving process at this time. Again he has multiple food allergies so it is uncertain is something he ate may have triggered this last exacerbation. We review all the labs and does not appear to be acute infection there does not seem to be any concern for anything severe such as inflammatory bowel disease. His only complaint is that he is having swelling and itching at the meatus of his penis. He denies any risky sexual contacts. I did advise him that this may be balanitis and I will give him an anti fungal but if it does not resolve he should present to an urgent care for STD testing. I say this because these things are much easier to treat then to the leave untreated with serious life-threatening sequela. Return office visit in 8 weeks to evaluate his response to presume balanitis and see how he is doing with his bowels. Medications: New nystatin 1 appl topical TID 30 grams 3RF N48.1 - Balanitis [place] Discontinued linaclotide Discontinued Reason: Doctor's Order 290 mcg PO QAM 30 days 30 caps 3RF Resumed sennosides (Senna Laxative) 17.2 mg (2 x 8.6 mg) PO BEDTIME 90 days PRN 90 tabs 1RF constipation Lorenza Hartley MD Coding Level of Care Code Est Pt Level 3 (91477) Diagnoses Acute diarrhea R19.7 Balanitis N48.1 Multiple food allergies Z91.018 Chronic idiopathic constipation K59.04 Abdominal bloating R14.0 Gastroesophageal reflux disease, unspecified whether esophagitis present K21.9 Esophagitis presence: esophagitis presence not specified
== END 2023-07-09 13:29 | disposition home or self-care (01) ==
PROVIDERS: PCP Internal Medicine; Visit Provider Nurse Practitioner
DX: R19.7 Diarrhea, unspecified (principal); N48.1 Balanitis; Z91.018 Allergy to other foods; K59.04 Chronic idiopathic constipation; R14.0 Abdominal distension (gaseous); K21.9 Gastro-esophageal reflux disease without esophagitis
CPT/HCPCS: 99213

== ENCOUNTER → 2023-07-09 11:50 | Outpatient (BNVA) | payer OTHER, SELFPAY | PROVIDERS: PCP Internal Medicine; Visit Provider Nurse Practitioner | DX: R19.7 Diarrhea, unspecified (principal); K59.04 Chronic idiopathic constipation; R14.0 Abdominal distension (gaseous); K21.9 Gastro-esophageal reflux disease without esophagitis; N48.1 Balanitis; Z91.018 Allergy to other foods | CPT/HCPCS: 99212 ==

== ENCOUNTER 2023-09-10 08:29 | Outpatient (AMB) | payer OTHER, SELFPAY ==
[2023-09-10 08:32] VITALS: BP 128/80; BMI 25.4
--- NOTE | 2023-09-10 08:32 | MHC.PC.OV ---
Vital Signs 09/10/23 08:32 Height 5 ft 8 in Weight 167 lb BMI 25.4 BP 128/80 Blood Pressure Location Lt brachial Position Sitting Intake Visit Reasons: PE Intake Note: Patient here for a physical exam Pot Room Tapper Required: No Accompanied by: Self / Same As Patient Allergies coconut Allergy (Intermediate, Verified 09/10/23 08:38) skin rash Seasonal Allergies Allergy (Intermediate, Verified 09/10/23 08:38) Itchy Eyes gabapentin Allergy (Verified 09/10/23 08:38) Shakiness cut glass Allergy (Mild, Uncoded 09/10/23 08:38) Unknown ahuja Allergy (Mild, Uncoded 09/10/23 08:38) unknown Medication List - Last Reconciled 09/10/23 by Lorenza Hartley MD albuterol sulfate 90 mcg/actuation 2 puffs PO QID PRN diphenhydramine HCl (Benadryl Allergy) 25 mg PO BEDTIME 10 days fluticasone propionate 110 mcg/actuation (Flovent HFA) 1 puff PO BID 30 days ibuprofen 800 mg PO TID PRN linaclotide (Linzess) 145 mcg PO QAM multivitamin 1 tab PO DAILY nystatin 1 appl topical TID pantoprazole 40 mg PO BID 90 days sennosides (Senna Laxative) 17.2 mg (2 x 8.6 mg) PO BEDTIME PRN 90 days simethicone (Anti-Gas Ultra Strength) 180 mg PO TID PRN triamcinolone acetonide 0.1% 1 appl topical DAILY 15 days Tobacco use date assessed: 09/10/23 Dental Screening Dental Screen Date: 09/10/23 Did you have a dental visit in the last 12 months?: Yes Did you have a dental problem in the last 6 months where you did not have access to dental care?: No Was dental information given to patient?: Patient has dentist HPI HPI Comments History of Present Illness Details This is a 58-year-old male that comes for his physical exam. Last colonoscopy was 2020 showing tubular adenoma and next colonoscopy should be 2025. No chest pain or shortness of breath. [facility] Medical History Hearing loss Peptic ulcer Diarrhea Polyarthralgia Allergic rhinitis Mild asthma GERD (gastroesophageal reflux disease) Surgical History History of esophagogastroduodenoscopy (EGD) Hx of colonoscopy History of dental surgery Hx of hand surgery Family History Mother Cirrhosis of liver Diabetes Lung cancer Heart disease HTN (hypertension) Father Emphysema lung Sister Parkinson disease Substance use disorder Paternal Grandmother Dementia HTN (hypertension) Paternal Aunt Bone cancer Social History Housing: House Alcohol intake: current Alcohol intake frequency: holidays/special occasions only Alcohol type: wine Patient Tobacco Use Status: Never used Tobacco e-Cigarette/Vaping Use: Never Used Second Hand Smoke Exposure: No service: No Current occupational status: disabled Cognitive needs: No Hearing needs: No Vision needs: Yes Questionnaire PHQ-9 Over the last 2 weeks, how often have you been bothered by any of the following problems? 1. Little interest or pleasure in doing things: not at all 2. Feeling down, depressed, or hopeless: not at all 3. Trouble falling or staying asleep, or sleeping too much: not at all 4. Feeling tired or having little energy: not at all 5. Poor appetite or overeating: not at all 6. Feeling bad about yourself - or that you are a failure or have let yourself or your family down: not at all 7. Trouble concentrating on things, such as reading the newspaper or watching television: not at all 8. Moving or speaking so slowly that other people could have noticed. Or the opposite - being so fidgety or restless that you have been moving around a lot more than usual: not at all 9. Thoughts that you would be better off or of hurting yourself in some way: not at all Total score: 0 Depression Screening Interpretation: Negative Depression Screening Done: Yes 33792 - PHQ-9 Billing: Yes Source: Developed by Drs. Ankit Adler, Courtney Alejo, Misha Liu and colleagues, with an educational ketty from [employer]. Thrive Questionnaire Date Thrive assessed: 09/10/23 I am a: Patient What is your living situation today?: I have a steady place to live Within the past 12 months, did the food you bought not last and you didn't have the money to get more?: Never true Within the past 12 months, did you worry whether your food would run out before you got money to buy more?: Never true Do you have trouble paying for medicines?: No Do you have trouble getting transportation to medical appointments?: No Do you have trouble paying your heating and electricity bill?: No Do you have trouble taking care of your child, family member or friend?: No Do you have trouble with day-to-day activities such as bathing, preparing meals, shopping, managing finances, etc.?: No Are you currently unemployed and looking for a job?: No Are you interested in more education?: No Please select the resources that you would like help with: None Currently or been in a relationship where the following occur: no concerns reported AUDIT C Alcohol Use Questionnaire (AUDIT-C) 1. How often do you have a drink containing alcohol?: Monthly or less 2. How many drinks containing alcohol do you have on a typical day when you are drinking?: 1 or 2 3. How often do you have six or more drinks on one occasion?: Never Total Score: 1 Score Reviewed/Action Taken: No DM-7 AMB Questionnaire DM-7 Date DM - 7 assessed: 09/10/23 Feeling nervous, anxious, or on edge: 1 = Several days Not being able to stop or control worryin = Not at all Worrying too much about different things: 1 = Several days Trouble relaxin = Not at all Being so restless that it is hard to sit still: 0 = Not at all Becoming easily annoyed or irritable: 1 = Several days Feeling afraid as if something awful might happen: 0 = Not at all Total DM-7 score (0-4 normal; 5-9 mild; 10-14 moderate; 15-21 severe): 3 Source: Developed by Drs. Ankit Adler, Courtney Alejo, Misha Liu and colleagues, with an educational ketty from [employer]. DM-7 Assessment Billing DM-7 Assessment Tool: DM-7 Assessment 11278 Review of Systems Const All systems reviewed & are unremarkable except as noted in HPI and below Eyes Reports no additional complaints, Denies change in vision and Denies other visual disturbances Card Denies chest pain at rest, Denies chest pain with activity, Denies edema, Denies irregular heart rhythm, Denies claudication, Denies dyspnea, Denies dyspnea on exertion, Denies orthopnea, Denies paroxysmal nocturnal dyspnea and Denies slow heart rate Resp Denies cough, Denies dyspnea and Denies dyspnea on exertion GI Denies abdominal pain, Denies change in bowel habits, Denies excessive flatus, Denies nausea and Denies vomiting Denies urinary hesitancy, Denies urinary incontinence and Denies urinary urgency Musc Denies abnormal gait, Denies atrophy, Denies deformity and Denies limited range of motion Skin/Breast Denies bleeding lesions, Denies changing lesions and Denies rash Neuro Denies abnormal gait, Denies behavioral changes, Denies confusion and Denies lack of coordination Psych Denies behavioral changes and Denies confusion Physical exam (Primary Care) Vital Signs: Last Vital Signs BP 128/80 09/10/23 08:32 BMI result Body Mass Index 25.4 Tobacco/Smoking Status: Tobacco use Status Tobacco use date assessed 09/10/23 09/10/23 08:37 Patient Tobacco Use Status Never used Tobacco 09/10/23 08:37 e-Cigarette/Vaping Use Never Used 09/10/23 08:37 PHQ-9: PHQ-9 Score PHQ-9: Total score 0 09/10/23 08:44 Depression Screening Interpretation: Negative Thrive Assessment: Date of Thrive Assessment Date Thrive assessed 09/10/23 09/10/23 08:37 Currently or been in a relationship where the following occur: no concerns reported Const General: No confusion Orientation/consciousness: patient oriented x3 and No confusion [facility] Head: Yes normal to inspection, Yes normocephalic and Yes atraumatic Ears: external ears normal Eyes General: appearance normal, both eyes and all related structures Eyelids: Yes eyelids normal Conjunctivae: conjunctivae normal Neck Neck: Yes normal visual inspection and Yes supple Resp Effort & Inspection: normal respiratory effort Auscultation: clear to auscultation bilaterally Cardio Jugular venous distension: no JVD Rate: regular rate Rhythm: regular rhythm Heart sounds: S1 normal heart sound present and S2 normal heart sound present GI Inspection: Yes normal to inspection Palpation (GI): Soft to palpation and nontender Auscultation: normal bowel sounds Skin General skin exam: no rashes or lesions noted Neuro General: patient oriented x3, no focal motor deficits and No confusion Extrem General: Yes full ROM Psych Appearance: grossly normal Office Procedures Flu Questionnaire Does the patient have a severe egg allergy?: No Immunizations flu vacc [id number] 6mos up(PF) 60 mcg(15 mcgx4)/0.5 mL IM syringe Performing Provider: Lorenza Hartley MD [facility] Documented (not given) by: PAM Hummel on 09/10/23 08:38 Reason Not Given: Received Previously Assessment and Plan Assessment & Plan (1) Physical exam: Code(s): Z00.00 - Encounter for general adult medical examination without abnormal findings Plan: Repeat in a year. Orders: Orders Influenza [id number] Immunization Today Z23 - Encounter for immunization Lipid Panel Today Z00.00 - Encounter for general adult medical examination without abnormal findings Comprehensive [place]. Panel Fast Today Z00.00 - Encounter for general adult medical examination without abnormal findings Medications: Refilled sennosides (Senna Laxative) 17.2 mg (2 x 8.6 mg) PO BEDTIME PRN 90 tabs 1RF constipation 90 days simethicone (Anti-Gas Ultra Strength) 180 mg PO TID PRN 90 caps 0RF abdominal distention R14.0 - Abdominal distension (gaseous) Coding Level of Care Code Est Pt Prev Care 40-64y(33741) Diagnoses Physical exam Z00.00 Additional Codes DM-7 Assessment Billing - DM-7 Assessment Tool: DM-7 Assessment 79970 ([id number]) Time Spent (min) 32
== END 2023-09-10 08:50 | disposition home or self-care (01) ==
PROVIDERS: Visit Provider Internal Medicine
DX: Z00.00 Encounter for general adult medical examination without abnormal findings (principal)
CPT/HCPCS: 99396

== ENCOUNTER 2023-09-24 08:16 | Outpatient (AMB) | payer OTHER, SELFPAY ==
--- NOTE | 2023-09-24 08:23 | MHC.OFFVIS ---
Intake Vital Signs 09/24/23 08:27 Height 5 ft 8 in Weight 167 lb BMI 25.4 BP 110/70 Blood Pressure Location Lt brachial Position Sitting Pulse 73 Intake Visit Reasons: 8 week follow up CIC Intake Note: Patient follow up for CIC. Patient cc: abdominal bloating on and off, constipation on and off and some abdominal sounds. Denies any other GI issues. 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 He he is uncertain rely but it might be that he is dealing better with his stress. For now we have stopped his Linzess since constipation does not seem to be a driving process at this time. Again he has multiple food allergies so it is uncertain is something he ate may have triggered this last exacerbation. We review all the labs and does not appear to be acute infection there does not seem to be any concern for anything severe such as inflammatory bowel disease. His only complaint is that he is having swelling and itching at the meatus of his penis. He denies any risky sexual contacts. I did advise him that this may be balanitis and I will give him an anti fungal but if it does not resolve he should present to an urgent care for STD testing. I say this because these things are much easier to treat then to the leave untreated with serious life-threatening sequela. Return office visit in 8 weeks to evaluate his response to presume balanitis and see how he is doing with his bowels. 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 He he is uncertain rely but it might be that he is dealing better with his stress. For now we have stopped his Linzess since constipation does not seem to be a driving process at this time. Again he has multiple food allergies so it is uncertain is something he ate may have triggered this last exacerbation. We review all the labs and does not appear to be acute infection there does not seem to be any concern for anything severe such as inflammatory bowel disease. His only complaint is that he is having swelling and itching at the meatus of his penis. He denies any risky sexual contacts. I did advise him that this may be balanitis and I will give him an anti fungal but if it does not resolve he should present to an urgent care for STD testing. I say this because these things are much easier to treat then to the leave untreated with serious life-threatening sequela. Return office visit in 8 weeks to evaluate his response to presume balanitis and see how he is doing with his bowels. Medications: New nystatin 1 appl topical TID 30 grams 3RF N48.1 - Balanitis MICHOACANO Topete Discontinued linaclotide Dis continued Reason: Doctor's Order 290 mcg PO QAM 30 days 30 caps 3RF Resumed sennosides (Senna Laxative) 17.2 mg (2 x 8.6 m g) PO BEDTIME 90 d ays PRN 90 tabs 1R F constipation Lorenza Hartley MD TODAYS VISIT He is back on the Linzess but now at the 145mcg dose and this is moving his bowels qod. He will only have occasional diarrhea mostly triggered by spicy foods and coconut, marshmellow. When he has a dietary misstep he manages it well with OTC Pepto Bismol which he has in both the tablet and the liquid form. He finally received the simethicone which was greatly delayed because [facility] was out of stock and could not get it in. This has been a problem with many medication since COVID. His GERD is well controlled on his pantoprazole bid and he has senna available as well should severe CIC return as well. ROV 6 mos. PFS Medical History Hearing loss Peptic ulcer Diarrhea Polyarthralgia Allergic rhinitis Mild asthma GERD (gastroesophageal reflux disease) Surgical History History of esophagogastroduodenoscopy (EGD) Hx of colonoscopy History of dental surgery Hx of hand surgery Family History Mother Cirrhosis of liver Diabetes Lung cancer Heart disease HTN (hypertension) Father Emphysema lung Sister Parkinson disease Substance use disorder Paternal Grandmother Dementia HTN (hypertension) Paternal Aunt Bone cancer Social History Housing: House Alcohol intake: current Alcohol intake frequency: holidays/special occasions only Alcohol type: wine Patient Tobacco Use Status: Never used Tobacco e-Cigarette/Vaping Use: Never Used Second Hand Smoke Exposure: No service: No Current occupational status: disabled Cognitive needs: No Hearing needs: No Vision needs: Yes Review of Systems Const Denies fatigue, Denies fever(s), Denies night sweats, Denies poor appetite and Denies weight loss Eyes Details: glasses Reports requires corrective lenses ENT Reports Normal hearing present, Denies dental pain, Denies dysphagia, Denies hearing loss, Denies mouth pain, Denies odynophagia, Denies throat swelling, Denies tongue swelling and Reports other (Dentition adequate) Card Reports no additional complaints Resp Reports no additional complaints GI Denies abdominal pain, Denies melena, Reports bloating, Denies hematochezia, Reports constipation, Denies GI cramping, Denies dysphagia, Denies excessive flatus, Denies early satiety, Reports heartburn, Denies diarrhea, Reports loose stools, Denies nausea, Denies odynophagia, Denies vomiting and Denies hematemesis Skin/Breast Denies pruritus, Denies lesions, Denies rash and Denies jaundice Neuro Reports Normal hearing present and Denies Abnormal speech present Endo Denies fatigue Aller/Immun Denies throat swelling and Denies tongue swelling Physical Exam Vital Signs: Last Vital Signs Pulse 73 09/24/23 08:27 BP 110/70 09/24/23 08:27 BMI result Body Mass Index 25.4 Const General: cooperative, no acute distress, well developed and well groomed Nutritional Appearance: average body habitus and well nourished Orientation/consciousness: oriented to person, oriented to place and oriented to time Limitations: No language barrier HEENT Head: Yes normocephalic and Yes atraumatic Eyes General: appearance normal, both eyes and all related structures Pupils: Equal, round and reactive pupils present Neck Neck: Yes normal visual inspection and Yes no lymphadenopathy Thyroid: Thyroid normal Resp Effort & Inspection: normal respiratory effort and able to speak in complete sentences Auscultation: clear to auscultation bilaterally Cardio Rate: regular rate Rhythm: regular rhythm Heart sounds: Normal, physiologic split S2 sound present Peripheral pulses: radial pulses present and posterior tibial pulses present GI Inspection: No distended and No Abdominal panniculus present Palpation (GI): Soft to palpation, nontender, no guarding, not rigid and No hepatosplenomegaly present Percussion: Yes normal to percussion Auscultation: normal bowel sounds Rectal Exam - Male: Yes deferred Skin General skin exam: no rashes or lesions noted, turgor normal, skin not dry, no jaundice, No spider nevi and no striae Rashes: no rashes Nails: normal Neuro General: oriented to person, oriented to place and oriented to time Cranial nerves: Yes Equal, round and reactive pupils present and Yes Normal hearing present Speech: No Abnormal speech present Extrem General: Yes normal to inspection, No clubbing, No cyanosis and No edema Psych Appearance: grossly normal and well kempt Mental Status: mental status grossly normal Speech and movement: Normal speech and movement present Affect: normal affect Attitude: cooperative Thought process: Normal thought process present and not confabulating Thought content: Normal thought content present Insight: Limited insight present (Psych) Judgement: Limited judgement present (Psych) Assessment & Plan Assessment & Plan (1) Acute diarrhea: Code(s): R19.7 - Diarrhea, unspecified (2) Chronic idiopathic constipation: Code(s): K59.04 - Chronic idiopathic constipation (3) Abdominal bloating: Comment: This was largely relieved once we regulate his constipation on Linzess 145 micro g Code(s): R14.0 - Abdominal distension (gaseous) (4) GERD (gastroesophageal reflux disease): Code(s): K21.9 - Gastro-esophageal reflux disease without esophagitis Qualifiers: Esophagitis presence: esophagitis presence not specified Qualified Code(s): K21.9 - Gastro-esophageal reflux disease without esophagitis Plan He is back on the Linzess but now at the 145mcg dose and this is moving his bowels qod. He will only have occasional diarrhea mostly triggered by spicy foods and coconut, marshmellow. When he has a dietary misstep he manages it well with OTC Pepto Bismol which he has in both the tablet and the liquid form. He finally received the simethicone which was greatly delayed because [facility] stock and could not get it [facility]. This has been a problem with many medication since [facility]. His GERD is well controlled on his pantoprazole bid and he has senna available as well should severe CIC return as well. ROV 6 mos. Medications: Refilled linaclotide (Linzess) 145 mcg PO QAM 30 caps 6RF K59.04 - Chronic idiopathic constipation pantoprazole 40 mg PO BID 90 days 180 tabs 6RF K21.9 - Gastro-esophageal reflux disease without esophagitis sennosides (Senna Laxative) 17.2 mg (2 x 8.6 mg) PO BEDTIME 90 days PRN 90 tabs 1RF constipation simethicone (Anti-Gas Ultra Strength) 180 mg PO TID PRN 90 caps 1RF abdominal distention R14.0 - Abdominal distension (gaseous) nystatin 1 appl topical TID 30 grams 3RF N48.1 - Balanitis Coding Level of Care Code Est Pt Level 3 (50730) Diagnoses Acute diarrhea R19.7 Chronic idiopathic constipation K59.04 Abdominal bloating R14.0 Gastroesophageal reflux disease, unspecified whether esophagitis present K21.9 Esophagitis presence: esophagitis presence not specified
[2023-09-24 08:27] VITALS: BP 110/70; PULSE 73; BMI 25.4
== END 2023-09-24 08:46 | disposition home or self-care (01) ==
PROVIDERS: PCP Internal Medicine; Visit Provider Nurse Practitioner
DX: R19.7 Diarrhea, unspecified (principal); K59.04 Chronic idiopathic constipation; R14.0 Abdominal distension (gaseous); K21.9 Gastro-esophageal reflux disease without esophagitis
CPT/HCPCS: 99213

== ENCOUNTER → 2023-09-24 08:16 | Outpatient (BNVA) | payer OTHER, SELFPAY | PROVIDERS: PCP Internal Medicine; Visit Provider Nurse Practitioner | DX: K59.04 Chronic idiopathic constipation (principal); K21.9 Gastro-esophageal reflux disease without esophagitis; R14.0 Abdominal distension (gaseous) | CPT/HCPCS: 99212 ==

== ENCOUNTER 2024-11-24 14:03 | Outpatient (AMB) | payer OTHER, SELFPAY ==
--- NOTE | 2024-11-24 14:49 | A.OFFVIS_ITS ---
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 He presents for left hand pain and reports his hand pulsates. He states Dr. August performed surgery on him in the past and he presents today to make sure that everything is all set. Summer Internship Required: No Allergies coconut Allergy (Intermediate, Verified 11/24/24 14:58) skin rash Seasonal Allergies Allergy (Intermediate, Verified 11/24/24 14:58) Itchy Eyes gabapentin Allergy (Verified 11/24/24 14:58) Shakiness cut glass Allergy (Mild, Uncoded 11/24/24 14:58) Unknown ahuja Allergy (Mild, Uncoded 11/24/24 14:58) unknown Medication List - Last Reconciled 11/24/24 by Ginger Nova RN albuterol sulfate 90 mcg/actuation 2 puffs PO QID PRN diphenhydramine HCl (Benadryl Allergy) 25 mg PO BEDTIME 10 days fluticasone propionate 110 mcg/actuation (Flovent HFA) 1 puff PO BID 30 days ibuprofen 800 mg PO TID PRN linaclotide (Linzess) 145 mcg PO QAM multivitamin 1 tab PO DAILY nystatin 1 appl topical TID pantoprazole 40 mg PO BID 90 days sennosides (senna) 17.2 mg (2 x 8.6 mg) PO BEDTIME PRN simethicone 180 mg PO TID PRN triamcinolone acetonide 0.1% 1 appl topical DAILY 15 days HPI 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 He denies pain or any limitations with activity. States he is coming in for an appointment today to reassure him there are no bony abnormalities. [facility] Medical History Hearing loss Peptic ulcer Diarrhea Polyarthralgia Allergic rhinitis Mild asthma GERD (gastroesophageal reflux disease) Surgical History History of esophagogastroduodenoscopy (EGD) Hx of colonoscopy History of dental surgery Hx of hand surgery Family History Mother Cirrhosis of liver Diabetes Lung cancer Heart disease HTN (hypertension) Father Emphysema lung Sister Parkinson disease Substance use disorder Paternal Grandmother Dementia HTN (hypertension) Paternal Aunt Bone cancer Social History Housing: House Alcohol intake: current Alcohol intake frequency: holidays/special occasions only Alcohol type: wine Patient Tobacco Use Status: Never used Tobacco e-Cigarette/Vaping Use: Never Used Second Hand Smoke Exposure: No service: No Current occupational status: disabled Cognitive needs: No Hearing needs: No Vision needs: Yes Review of Systems Const All systems reviewed & are unremarkable except as noted in HPI and below Physical Exam Const General: cooperative and no acute distress Orientation/consciousness: patient oriented x3 Resp Effort & Inspection: normal respiratory effort and able to speak in complete sentences Cardio Peripheral pulses: Peripheral pulses 2+ throughout Neuro General: patient oriented x3 Extrem Other: Left hand is normal to inspection. He does have evidence of healed scars over the index and ring finger from flexor tendon repair. He can fully extend all digits. He can make a close fist with some weakness. Neurovascularly intact. Results Reviewed Results Reviewed: X-rays of the left hand obtained in the office today and reviewed by me are negative for any acute or chronic abnormalities. Assessment & Plan Assessment & Plan (1) Left hand pain: Code(s): M79.642 - Pain in left hand Category: Medical Plan: Patient is doing well overall. 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 He declined occupational therapy at this time. I encouraged him to work on range of motion and strengthening exercises on his own. No further questions at this time. He will follow up as needed. Orders: Orders XR hand LT min 3V Today M79.642 - Pain in left hand XR knee LT 3V Today M25.562 - Pain in left knee Coding Level of Care Code New Pt Level 3 (87859) Complex EM visit Add On G2211 Diagnoses Left hand pain M79.642
== END 2024-11-24 15:11 | disposition home or self-care (01) ==
LOC: HO.HOS 14:04
PROVIDERS: PCP Internal Medicine; Visit Provider Physician Assistant
DX: M79.642 Pain in left hand (principal)
CPT/HCPCS: 99203

== ENCOUNTER 2024-11-24 14:44 | Outpatient (REF) | payer OTHER, SELFPAY ==
--- NOTE | ~2024-11-24 | XR_ITS ---
EXAMINATION: XR HAND 3 OR MORE VIEWS LEFT HISTORY: M79.642 - Pain in left hand COMPARISON: Comparison is made with the prior examination dated 01/14/2019. FINDINGS: Three views of the left hand are submitted. Osseous mineralization is normal. The previously seen fractures of the middle phalanges of the 2nd and 3rd fingers have healed. There is no acute fracture or dislocation. The joint spaces are preserved. The soft tissues are unremarkable. XR/XR hand LT min 3V IMPRESSION: No acute abnormality. Electronically signed by: Ankit Huddleston MD 11/25/2024 07:45 AM EDT
== END 2024-11-24 14:45 | disposition home or self-care (01) ==
LOC: HO.HOSX 14:44
PROVIDERS: Visit Provider Physician Assistant
DX: M79.642 Pain in left hand (principal)
CPT/HCPCS: 73130; 99202

== ENCOUNTER → 2024-11-24 14:49 | Outpatient (BNV) | payer OTHER, SELFPAY | PROVIDERS: Visit Provider Radiology Diagnostic Radiology | DX: M79.642 Pain in left hand (principal) | CPT/HCPCS: 73130 ==

== ENCOUNTER 2025-01-07 11:52 | Outpatient (AMB) | payer OTHER, SELFPAY ==
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
[2025-01-07 11:57] VITALS: BP 116/84; PULSE 86; BMI 25.1
== END 2025-01-07 12:30 | disposition home or self-care (01) ==
LOC: HO.HGI 11:53
PROVIDERS: PCP Internal Medicine; Visit Provider Nurse Practitioner
DX: K59.04 Chronic idiopathic constipation (principal); K21.9 Gastro-esophageal reflux disease without esophagitis
CPT/HCPCS: 99213

== ENCOUNTER → 2025-01-07 11:52 | Outpatient (BNVA) | payer OTHER, SELFPAY | PROVIDERS: PCP Internal Medicine; Visit Provider Nurse Practitioner | DX: K21.9 Gastro-esophageal reflux disease without esophagitis (principal); K59.04 Chronic idiopathic constipation; R14.0 Abdominal distension (gaseous); R19.7 Diarrhea, unspecified | CPT/HCPCS: 99212 ==

== ENCOUNTER 2025-01-31 15:02 | Outpatient (AMB) | payer OTHER, SELFPAY ==
--- NOTE | 2025-01-31 15:03 | A.OFFPC_ITS ---
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 Accompanied by: Self / Same As Patient Allergies coconut Allergy (Intermediate, Verified 01/31/25 15:05) skin rash Seasonal Allergies Allergy (Intermediate, Verified 01/31/25 15:05) Itchy Eyes gabapentin Allergy (Verified 01/31/25 15:05) Shakiness cut glass Allergy (Mild, Uncoded 11/24/24 14:58) Unknown ahuja Allergy (Mild, Uncoded 11/24/24 14:58) unknown Tobacco use date assessed: 01/31/25 Dental Screening Dental Screen Date: 01/31/25 Did you have a dental visit in the last 12 months?: No Did you have a dental problem in the last 6 months where you did not have access to dental care?: No Was dental information given to patient?: No HPI HPI Comments History of Present Illness Details The patient is a 59-year-old male presenting with a follow-up visit addressing multiple ongoing medical issues and medication management. He has a history of seasonal allergic rhinitis, managed recently with Benadryl, which provided symptom relief but caused drowsiness. There is an expressed need for alternatives to mitigate sleep-inducing effects. Asthma, managed with an as- needed rescue inhaler, remains stable with no acute episodes reported. GERD is under control with lansoprazole, and the patient denies recent heartburn. The patient also manages chronic constipation with Linzess and Senna, while a dairy allergy requires lactate to prevent discomfort. The patient?s stress level has increased due to transportation challenges, resulting in a long walk that led to muscle soreness. A notable recent weight loss from 174 to 160 pounds was reported, although not linked to intentional dietary changes. [facility] Medical History Hearing loss Peptic ulcer Diarrhea Polyarthralgia Allergic rhinitis Mild asthma GERD (gastroesophageal reflux disease) Surgical History History of esophagogastroduodenoscopy (EGD) Hx of colonoscopy History of dental surgery Hx of hand surgery Family History Mother Cirrhosis of liver Diabetes Lung cancer Heart disease HTN (hypertension) Father Emphysema lung Sister Parkinson disease Substance use disorder Paternal Grandmother Dementia HTN (hypertension) Paternal Aunt Bone cancer Social History Housing: House Alcohol intake: current Alcohol intake frequency: holidays/special occasions only Alcohol type: wine Patient Tobacco Use Status: Never used Tobacco e-Cigarette/Vaping Use: Never Used Second Hand Smoke Exposure: No service: No Current occupational status: disabled Cognitive needs: No Hearing needs: No Vision needs: Yes Questionnaire PHQ-9 Over the last 2 weeks, how often have you been bothered by any of the following problems? 1. Little interest or pleasure in doing things: not at all 2. Feeling down, depressed, or hopeless: not at all 3. Trouble falling or staying asleep, or sleeping too much: not at all 4. Feeling tired or having little energy: not at all 5. Poor appetite or overeating: not at all 6. Feeling bad about yourself - or that you are a failure or have let yourself or your family down: not at all 7. Trouble concentrating on things, such as reading the newspaper or watching television: not at all 8. Moving or speaking so slowly that other people could have noticed. Or the opp osite - being so fidgety or restless that you have been moving around a lot more than usual: not at all 9. Thoughts that you would be better off or of hurting yourself in some way: not at all Total score: 0 Depression Screening Interpretation: Negative Depression Screening Done: Yes 16865 - PHQ-9 Billing: Yes Source: Developed by Drs. Ankit Adler, Courtney Alejo, Misha Liu and colleagues, with an educational ketty from [employer]. Thrive Questionnaire Date Thrive assessed: 01/31/25 I am a: Patient What is your living situation today?: I have a steady place to live Within the past 12 months, did the food you bought not last and you didn't have the money to get more?: Never true Within the past 12 months, did you worry whether your food would run out before you got money to buy more?: Never true Do you have trouble paying for medicines?: No Do you have trouble getting transportation to medical appointments?: No Do you have trouble paying your heating and electricity bill?: No Do you have trouble taking care of your child, family member or friend?: No Do you have trouble with day-to-day activities such as bathing, preparing meals, shopping, managing finances, etc.?: No Are you currently unemployed and looking for a job?: No Are you interested in more education?: No Please select the resources that you would like help with: None Currently or been in a relationship where the following occur: No concerns reported THRIVE Score: 0 AUDIT C Alcohol Use Questionnaire (AUDIT-C) 1. How often do you have a drink containing alcohol?: Monthly or less 2. How many drinks containing alcohol do you have on a typical day when you are drinking?: 1 or 2 3. How often do you have six or more drinks on one occasion?: Less than monthly Total Score: 2 DM-7 AMB Questionnaire DM-7 Date DM - 7 assessed: 01/31/25 Feeling nervous, anxious, or on edge: 1 = Several days Not being able to stop or control worryin = Not at all Worrying too much about different things: 1 = Several days Trouble relaxin = Not at all Being so restless that it is hard to sit still: 0 = Not at all Becoming easily annoyed or irritable: 0 = Not at all Feeling afraid as if something awful might happen: 0 = Not at all Total DM-7 score (0-4 normal; 5-9 mild; 10-14 moderate; 15-21 severe): 2 Source: Developed by Drs. Ankit Adler, Courtney Alejo, Misha Liu and colleagues, with an educational ketty from [employer]. DM-7 Assessment Billing DM-7 Assessment Tool: DM-7 Assessment 38760 Review of Systems Const All systems reviewed & are unremarkable except as noted in HPI and below Card Denies chest pain at rest, Denies chest pain with activity, Denies edema, Denies irregular heart rhythm, Denies claudication, Denies dyspnea, Denies dyspnea on exertion, Denies orthopnea, Denies paroxysmal nocturnal dyspnea and Denies slow heart rate Resp Denies cough, Denies dyspnea and Denies dyspnea on exertion GI Denies abdominal pain, Denies change in bowel habits, Denies excessive flatus, Denies nausea and Denies vomiting Physical exam (Primary Care) Tobacco/Smoking Status: Tobacco use Status Tobacco use date assessed 01/31/25 01/31/25 15:10 Patient Tobacco Use Status Never used Tobacco 01/31/25 15:10 e-Cigarette/Vaping Use Never Used 01/31/25 15:10 PHQ-9: PHQ-9 Score PHQ-9: Total score 0 01/31/25 15:26 Depression Screening Interpretation: Negative Thrive Assessment: Date of Thrive Assessment Date Thrive assessed 01/31/25 01/31/25 15:10 Currently or been in a relationship where the following occur: No concerns reported Skin General skin exam: no rashes or lesions noted Extrem General: Yes full ROM Psych Appearance: grossly normal Telehealth Telehealth Telehealth Platform: Telephone Location of provider rendering services: practice address Location of patient: address on file Patient Identification confirmed using: Name, : Yes Telehealth method: video Patient verbally consented to treatment: Yes Patient verbally consented to billing insurance company: Yes Patient informed of any privacy concerns related to visit: Yes Coding Level of Care Code Tele Est Pt Level 4 (69072) Complex EM visit Add On G2211 Diagnoses Gastroesophageal reflux disease, unspecified whether esophagitis present K21.9 Esophagitis presence: esophagitis presence not specified Allergic rhinitis J30.9 Mild asthma J45.909 Chronic idiopathic constipation K59.04 Additional Codes DM-7 Assessment Billing - DM-7 Assessment Tool: DM-7 Assessment 50906 ([id number]) PHQ-9 - 97666 - PHQ-9 Billing: Yes ([id number]) Time Spent (min) 15 Assessment & Plan Assessment & Plan (1) GERD (gastroesophageal reflux disease): Code(s): K21.9 - Gastro-esophageal reflux disease without esophagitis Category: Medical Qualifiers: Esophagitis presence: esophagitis presence not specified Qualified Code(s): K21.9 - Gastro-esophageal reflux disease without esophagitis (2) Allergic rhinitis: Code(s): J30.9 - Allergic rhinitis, unspecified Category: Medical (3) Mild asthma: Comment: daily flovent & rescue inhaler prn Code(s): J45.909 - Unspecified asthma, uncomplicated Category: Medical (4) Chronic idiopathic constipation: Code(s): K59.04 - Chronic idiopathic constipation Category: Medical Plan I have decided to provide a non-sedating oral and nasal spray combination for the patient's seasonal allergic rhinitis, addressing the drowsiness side effect associated with Benadryl. Continuation of the current inhaler for asthma management was recommended, given its stability. GERD and constipation treatments will remain unchanged, and the patient will continue using lactate for his dairy allergy. I advised stretching exercises to alleviate muscle soreness from extended physical exertion. The patient?s recent weight loss will be monitored and is not of current concern. Patient was informed and verbally consented to the use of an ambient scribe for clinic note documentation during this visit. I discussed the benefits of switching to a non-drowsy allergy medication to mitigate side effects while controlling symptoms. I emphasized the continuation of current treatments for asthma, GERD, and constipation, given their efficacy, and touched upon the potential daily improvements in the patient's situation with transportation challenges. We also talked about the significance of monitoring any further weight loss while incorporating regular exercise to prevent muscle discomfort. I confirmed a follow-up appointment in six months. Medications: New fluticasone propionate 50 mcg/actuation (Flonase Allergy Relief) administer into each nostril 1 spray intranasal DAILY 16 grams 1RF 30 days cetirizine (All Day Allergy (cetirizine)) 10 mg PO DAILY PRN 90 tabs 1RF allergy symptoms 90 days Patient Instructions: - Use the new non-sedating allergy medication as prescribed. - Continue current asthma, GERD, and constipation treatments. - Stretch regularly to manage muscle soreness. - Monitor for further weight loss and contact me if there are any concerns. - Plan for a follow-up appointment in six months. - Contact the office if there are any worsening symptoms or new health issues.
== END 2025-01-31 15:50 | disposition home or self-care (01) ==
LOC: HO.HMCH 15:02
PROVIDERS: PCP Internal Medicine; Visit Provider Internal Medicine
DX: K21.9 Gastro-esophageal reflux disease without esophagitis (principal); J30.9 Allergic rhinitis, unspecified; J45.909 Unspecified asthma, uncomplicated; K59.04 Chronic idiopathic constipation

== ENCOUNTER → 2025-01-31 15:02 | Outpatient (BNVA) | payer OTHER, SELFPAY | PROVIDERS: PCP Internal Medicine; Visit Provider Internal Medicine | DX: K21.9 Gastro-esophageal reflux disease without esophagitis (principal); J45.909 Unspecified asthma, uncomplicated; K59.04 Chronic idiopathic constipation | CPT/HCPCS: 96127 ==

== ENCOUNTER 2025-05-05 09:51 | Outpatient (AMB) | payer OTHER, SELFPAY ==
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
[2025-05-05 10:05] VITALS: BP 120/72; PULSE 79; BMI 24.8
--- OUTSIDE RECORDS SUMMARY | 2025-05-05 11:12 | XMS_ITS | Patient Health Record ---
Author Organization [facility] Address [address] [place] [address] Care Team Providers Care Client Care Representative Name Role Phone Lorenza Lagunas Primary Care Provider Unavailab Ankit Adams Unavailable [phone] Reason For Referral No Information Medications Medication SIG (Take, Route, Frequency, Duration) Notes Start Date End Date Status Flovent HFA 110 MCG/ACT INHALE 1 PUFF BY MOUTH TWICE A DAY Inhalation for 60 Active MiraLax (colon prep) 8.3 ounce ((238) grams mixed with Gatorade or Crystal Light orally begin at 5:00 p.m. the day before the procedure for 1 day 09/23/2018 Active Dulcolax (colon prep) 5 MG take at 3:00 p.m and 7:00p.m. Orally two tablets twice a day for one day for 1 day 09/23/2018 Active Immunizations Vaccine Route Administration Date Status Comme nts Influenza Unknown 07/07/2018 Administered Social History Tobacco Use: Social History Observation Description Date Details (start date - stop date) Never Smoker NA - NA Tobacco Use/Smoking Question Answer Notes Patient is a nonsmoker Alcohol Screen Question Answer Notes Did you have a drink contain ing alcohol in the past year? Yes How often did you have a dri nk containing alcohol in the past year? Monthly or less (1 point) How many drinks did you have on a typical day when you were drinking in the past year? 1 or 2 drinks (0 point) How often did you have 6 or more drinks on one occasion in the past year? Never (0 point) Points 1 Interpretation Negative Section Notes: Nonsmoker; no sig alcohol Problems Problem Type SNOMED Code ICD Code Onset Dates Problem Status W/U Status Risk Notes Problem 061007085 Encounter for screening for malignant neoplasm of colon (Z12.11) Active confirmed Problem [id number] Gastroesophageal reflux disease, esophagitis presence not specified (K21.9) Active confirmed Plan Of Treatment Future Test Test Name Order Date UPPER GI ENDOSCOPY 09/23/2018 COLONOSCOPY 09/23/2018 Insurance Providers Payer Name Payer Address Payer Phone Subscriber Number Group Number Insured Name Patient Relationship to Insured Coverage Start Date Coverage End Date [facility] [address] [place] [phone] [id number] LEON MCINTYRE Self - patient is the insured Medical (General) History Medical History History ICD Code Denies DC,DM,CVA,renal disease Asthma GERD--has been on omeprazole in the past Surgical History Surgery Date(Month/Year) Oral surgery
== END 2025-05-05 10:32 | disposition home or self-care (01) ==
LOC: HO.HGI 09:52
PROVIDERS: PCP Internal Medicine; Visit Provider Nurse Practitioner
DX: K21.9 Gastro-esophageal reflux disease without esophagitis (principal); K59.04 Chronic idiopathic constipation; D12.6 Benign neoplasm of colon, unspecified
CPT/HCPCS: 99213

== ENCOUNTER → 2025-05-05 09:51 | Outpatient (BNVA) | payer OTHER, SELFPAY | PROVIDERS: PCP Internal Medicine; Visit Provider Nurse Practitioner | DX: K59.04 Chronic idiopathic constipation (principal); K21.9 Gastro-esophageal reflux disease without esophagitis; R11.2 Nausea with vomiting, unspecified; D12.6 Benign neoplasm of colon, unspecified | CPT/HCPCS: 99212 ==